=== PATIENT | female | born 1970 | race African-American/Black ===

== ENCOUNTER → 2019-01-22 | Day surgery (SDC) | payer OTHER ==
[~2019-01-22] MED LIST: DULERA 100 MCG/13 GM INH; FENTANYL CITRATE/PF 100MCG/2 ML INJ ONE; HYOSCYAMINE SULFATE 0.5 MG/ML INJ ONE; MIDAZOLAM HCL 2 MG/2 ML VIAL ONE; PROPOFOL IV EMULSION 10 MG/ML 20 ML VIAL ONE; PROPOFOL IV EMULSION 10 MG/ML 50 ML VIAL ONE; ZYRTEC-D TABLE1 EACH PO
--- NOTE | 2019-01-24 03:42 | Operative Report ---
DATE OF PROCEDURE: 01/22/2019 SURGEON: Simba Chanel MD PROCEDURES: EGD with biopsies and a colonoscopy with polypectomy. REFERRING PHYSICIAN: Dr. Sabrina Triana. She is with [facility]. INDICATIONS FOR EGD: Upper abdominal pain, bloating, and nausea. INDICATIONS FOR COLONOSCOPY: Surveillance colonoscopy, personal history of colon polyps, father with colon cancer and maternal grandmother with colon cancer. MEDICATION: The patient was done under MAC. Please see anesthesiologist note. PROCEDURE IN DETAIL: With the patient in the left lateral decubitus position, a flexible fiberoptic Olympus gastroscope was introduced into the esophagus under direct visualization without any difficulty. There were some patchy erythema noted in the distal esophagus. The scope was then advanced with ease into the stomach. Mucosa overlying the antrum of the body revealed some patchy intense erythema and moderate edema and biopsies were obtained and sent stain for H pylori. Some hyperplastic appearing polyps were noted in the body and the fundus of the stomach and some were partially excised with the cold biopsy forceps. Pylorus was of normal contour and shape. It was intubated with ease and the scope was advanced all the way to the second portion of the duodenum. Biopsies were obtained from the proximal second portion to rule out sprue. Mucosa overlying the duodenal bulb appeared to be within normal limits. The scope was then withdrawn back into the stomach and retroflexed. Mucosa overlying the fundus and cardia appeared to be within normal limits. The scope was then straightened out and was subsequently withdrawn. The patient tolerated the procedure well. IMPRESSION: 1. Distal esophagitis. 2. Gastritis, biopsied, biopsies sent to stain for Helicobacter pylori. 3. Gastric polyps, some partially excised with cold biopsy forceps. 4. Rule out sprue. PLAN: Follow up histology. Initiate Protonix 40 mg one p.o. q.a.m. before meals. The patient was then turned around and after adequate lubrication of the anal canal, the flexible fiberoptic Olympus colonoscope was inserted into the rectum with ease and advanced all the way to the cecum. Mucosa overlying the cecum appeared to be within normal limits. The scope was then removed slowly and one polyp was hot biopsied and polypectomy site was hemoclipped in the ascending colon. Two polyps were hot biopsied from the transverse colon. The descending appeared to be within normal limits. One polyp was hot biopsied from the sigmoid and one polyp was hot biopsied from the rectum. The scope was then retroflexed into the distal rectum and small internal hemorrhoids were noted, none of which was actively bleeding. The scope was then straightened out and was subsequently withdrawn. The patient tolerated the procedure well. IMPRESSION: 1. Ascending colon polyp, hot biopsied, polypectomy site hemoclipped. 2. Transverse colon polyps x2, hot biopsied. 3. Sigmoid colon polyp x1, hot biopsied. 4. Rectal polyp x1, hot biopsied. 5. Internal hemorrhoids, none actively bleeding. PLAN: Follow up histology. Initiate high-fiber, low-fat diet. Initiate high-fiber supplement. The patient might benefit from a followup colonoscopy in 2 to 3 years. Simba Chanel MD [facility] /[id number] cc: Dr. Sabrina Triana
--- OUTSIDE RECORDS SUMMARY | 2019-01-24 09:03 | XMS REPORT | Summary of Care ---
Author Author [facility] Organization [facility] Address Unknown Phone Unavailable Encounter DMITRI Flores(RADHA) [id number] Date(s): 12/23/17 - 12/24/17 [facility] [address] [facility], [facility] [address] [place] [address]- Vital Signs No data available for this section Problem List Condition Effective Dates Status Health Status Informant Morbid Active obesity(Confirmed) Allergies, Adverse Reactions, Alerts Substance Reaction Severity Status penicillins Active Medications methocarbamol 750 mg oral tablet See Instructions, # 30 tab, TAKE 1 TABLET BY MOUTH EVERY DAY NEEDED FOR MUSCL E PAIN, Pharmacy: [facility]/pharmacy #[id number] Start Date: 12/23/17 Status: Ordered Results No data available for this section Immunizations Given and Recorded Vaccine Date Status Refusal Reason diphtheria/pertussis, acel/tetanus adult1 11/27/17 Given 1Result Comment: patient monitored for 15 minutes had no side effect Procedures Procedure Date Related Diagnosis Body Site Status Partial hysterectomy 08/2007 Completed Social History Social History Type Response Substance Abuse Use: None. Sexual Sexually active: Yes. Last Pap Smear LAST PAP: 11/26/2017. Exercise Exercise frequency: 1-2 times/week. Exercise type: Walking. Employment/School Status: Employed. Work/School description: Admin.1, 2 Alcohol Past Smoking Status Never smoker; Exposure to Tobacco Smoke None; Cigarette Smoking Last 365 Days No; Reg Smoking Cessation Counseling No entered on: 02/26/18 1same 2Married, 2 boys Assessment and Plan No data available for this section
--- OUTSIDE RECORDS SUMMARY | 2019-01-24 09:03 | XMS REPORT | Clinical Summary ---
Author Author [facility] [employer] [facility] [employer] Address Unknown Phone Unavailable Care Team Providers Care Foreign Language Instructor Name Role Phone Chely James MD PCP Allergies Comments Active Allergy Reactions Severity Noted Date Penicillin 01/19/2018 Medications End Date Status Medication Sig Dispensed Refills Start Date Active phentermine-topiramate Take by mouth 0 (QSYMIA) 7.5-46 mg daily. capsule, ER multiphase 24 hr Active diclofenac (VOLTAREN) 50 Take 50 mg by 0 MG EC tablet mouth 2 (two) times a day. Active methocarbamol (ROBAXIN) Take 750 mg 0 750 MG tablet by mouth 4 (four) times a day. 08/10/2019 Active gabapentin (NEURONTIN) Take 1 90 capsule 11 300 mg capsule capsule (300 8 mg total) by mouth 3 (three) times a day. 09/21/2019 Active meloxicam (MOBIC) 15 mg Take 1 tablet 30 tablet 2 tablet (15 mg total) 8 by mouth daily. 08/16/2018 cyclobenzaprine Take 1 tablet 14 tablet 0 (FLEXERIL) 10 mg tablet (10 mg total) 8 by mouth 2 (two) times a day as needed for muscle spasms for up to 7 days. 08/16/2018 naproxen (NAPROSYN) 500 Take 1 tablet 14 tablet 0 MG tablet (500 mg 8 total) by mouth 2 (two) times a day with meals for 7 days. 10/10/2018 celecoxib (CeleBREX) 100 Take 1 60 capsule 1 MG capsule capsule (100 8 mg total) by mouth 2 (two) times a day for 30 days. 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 (Primary Dx) 10/04/2018 Office Visit Oncology Anita Cardoso MD Screening mammogram, encounter for (Primary Dx) 10/04/2018 Orders Only Oncology Bryan Ma DO Abdominal distention, non-gaseous (Primary Dx) 10/02/2018 Emergency Emergency Medicine Jonathan Ma MD Radicular pain of shoulder (Primary Dx) 09/30/2018 Office Visit Orthopedic Surgery Jonathan Ma MD Radicular pain of shoulder (Primary Dx) 09/21/2018 Office Visit Orthopedic Surgery Anita Cardoso MD 09/16/2018 Telephone Oncology Anita Cardoso MD 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 (Primary Dx) 09/14/2018 Orders Only Oncology Flaca Sebastian Bradycardia 09/09/2018 Orders Only Procedural Cardiology Jonathan Ma MD 09/08/2018 Telephone Orthopedic Surgery Hipolito Ervin MD Nabi, Faisal, MD Screening for cardiovascular condition (Primary Dx); Bradycardia 09/07/2018 Office Visit Cardiology Jonathan Ma MD 09/06/2018 Telephone Orthopedic Surgery Jonathan Ma MD Tendinitis of left rotator cuff (Primary Dx); Left shoulder pain, unspecified chronicity 08/10/2018 Office Visit Orthopedic Surgery Dunia Montalvo MD Supraspinatus tendon tear, left, initial encounter (Primary Dx); Other cervical disc degeneration at C6-C7 level 08/09/2018 Emergency Emergency Medicine Anita Cardoso MD 06/16/2018 Telephone Oncology after 01/23/2018 Family History Medical History Relation Name Comments Cancer Father Galindo Colon cancer- 1994 Wilkes, Sr. Colon cancer Father Galindo Eula, Sr. Diabetes Father Galindo Eula, Sr. Cancer Maternal Capri Alize Colon cancer- 1983 Grandmother Colon cancer Maternal Capri Alize Grandmother Cancer Mother Ara Forde Ovarian cancer- 2008 Ovarian cancer Mother Ara Forde Diabetes Paternal Rasheeda Grandmother [place]-dec eased Colon cancer Paternal Uncle Relation Name Status Comments Father Galindo Forde, Sr. Maternal Grandmother Capri Herrmann Mother Ara Forde Paternal Grandmother Rasheeda [place]-dece ased Paternal Uncle Social History Date Tobacco Use Types Packs/Day Years Used Never Smoker Smokeless Tobacco: Never Used Alcohol Use Drinks/Week oz/Week Comments No Sex Assigned at Date Recorded Not on file Industry Job Start Date Occupation Not on file Not on file Not on file Travel End Travel History Travel Start No recent travel history available. Last Filed Vital Signs Time Taken Vital Sign Reading 10/04/2018 1:14 PM [employer] Blood Pressure 112/74 10/04/2018 1:14 PM [employer] Pulse 84 10/04/2018 1:14 PM [employer] Temperature 37 C (98.6 F) 10/02/2018 2:00 AM CDT Respiratory Rate 18 10/02/2018 2:00 AM CDT Oxygen Saturation 97% - Inhaled Oxygen - Concentration 10/04/2018 1:14 PM [employer] Weight 97.2 kg (214 lb 4 oz) 10/04/2018 1:14 PM [employer] SUPERVIS[employer] Height 167.6 cm (5' 6") 10/04/2018 1:14 PM [employer]PER[employer] Body Mass Index 34.58 Plan of Treatment Care Team Description Date Type Specialty Anita Cardoso MD [address] [place] [id number] 04/06/2019 Office Visit Oncology Health Maintenance Due Date Last Done Comments CERVICAL CANCER SCREENING 1993 INFLUENZA VACCINE 06/30/2018 Procedures Comments Procedure Name Priority Date/Time Associated Diagnosis CHG US, CHEST,REAL TIME Routine 10/02/2018 3:12 AM CDT CHG US, ABDOMEN LIMITED Routine 10/02/2018 3:12 AM CDT ESTIMATED GFR STAT 10/02/2018 3:00 AM CDT CREATINE KINASE, TOTAL STAT 10/02/2018 (CPK) 3:00 AM CDT COMPREHENSIVE METABOLIC STAT 10/02/2018 PANEL 3:00 AM CDT HC COMPLETE BLD COUNT STAT 10/02/2018 W/AUTO DIFF 3:00 AM CDT URINALYSIS SCREEN AND STAT 10/02/2018 MICROSCOPY, WITH REFLEX 3:00 AM CDT TO CULTURE URINE CULTURE STAT 10/02/2018 3:00 AM CDT XR ABDOMEN ACUTE INC STAT 10/02/2018 CHEST 2:26 AM CDT CV STRESS TEST NUCLEAR Routine 09/21/2018 Bradycardia CARDIO 3:24 PM CDT MRI BREAST W WO CONTRAST Routine 09/21/2018 BILATERAL MRI BREAST W WO CONTRAST Routine 09/21/2018 BILATERAL HEMOGLOBIN A1C Routine 09/07/2018 10:45 AM CDT T3 Routine 09/07/2018 Bradycardia 10:45 AM CDT T4, FREE Routine 09/07/2018 Bradycardia 10:45 AM CDT THYROID STIMULATING Routine 09/07/2018 Bradycardia HORMONE 10:45 AM CDT COMPREHENSIVE METABOLIC Routine 09/07/2018 Bradycardia PANEL 10:45 AM CDT CBC WITH PLATELET AND Routine 09/07/2018 Bradycardia DIFFERENTIAL 10:45 AM CDT LIPID PANEL Routine 09/07/2018 Bradycardia 10:45 AM CDT CV HOLTER MONITOR 48 HOUR Routine 09/07/2018 Bradycardia 10:37 AM CDT ECG 12-LEAD Routine 09/07/2018 Screening for 9:30 AM CDT cardiovascular condition XR SHOULDER 2+ VW LEFT Routine 08/10/2018 Left shoulder pain, 2:49 PM CDT unspecified chronicity ME ARTHROCENTESIS Routine 08/10/2018 Tendinitis of left ASPIR&/INJ MAJOR JT/BURSA 2:00 PM CDT rotator cuff W/O US MRI UPPER EXTREMITY WO STAT 08/09/2018 CONTRAST LEFT 7:26 PM CDT MRI CERVICAL SPINE WO STAT 08/09/2018 CONTRAST 6:56 PM CDT ECG 12-LEAD STAT 08/09/2018 5:41 PM CDT ZZESTIMATED GFR STAT 08/09/2018 5:10 PM CDT TROPONIN STAT 08/09/2018 5:10 PM CDT LIPASE LEVEL STAT 08/09/2018 5:10 PM CDT HC COMPLETE BLD COUNT STAT 08/09/2018 W/AUTO DIFF 5:10 PM CDT COMPREHENSIVE METABOLIC STAT 08/09/2018 PANEL 5:10 PM CDT SPLINT APPLICATION Routine 08/09/2018 4:25 PM CDT after 01/23/2018 Results * FAST ULTRASOUND (10/02/2018 3:12 AM CDT) Narrative Performed At Bryan Ma DO 10/02/20185:29 AM FAST Ultrasound Performed by: BRYAN MA Authorized by: BRYAN MA Procedure details: Indications comment:Abdominal swelling Assess for:Intra-abdominal fluid Technique:Abdominal and cardiac Abdominal findings: L kidney:Visualized R kidney:Visualized Liver:Visualized Bladder:Visualized Hepatorenal space visualized: identified Splenorenal space: identified Rectovesical free fluid: not identified Splenorenal free fluid: not identified Pouch of Shaun free fluid: not identified Cardiac findings: Heart:Visualized Wall motion: identified Pericardial effusion: not identified * Urinalysis screen and microscopy, with reflex to culture (10/02/2018 3:00 AM CDT) Specimen site Clean catch [facility] DEPARTMENT OF PATHOLOGY AND GENOMIC MEDICINE Color, UA Straw [facility] DEPARTMENT OF PATHOLOGY AND GENOMIC MEDICINE Appearance, UA Clear [facility] DEPARTMENT OF PATHOLOGY AND GENOMIC MEDICINE Specific gravity, UA 1.011 1.001 - 1.035 [facility] DEPARTMENT OF PATHOLOGY AND GENOMIC MEDICINE pH, UA 6.0 5.0 - 8.5 [facility] DEPARTMENT OF PATHOLOGY AND GENOMIC MEDICINE Protein, UA Negative Negative [facility] DEPARTMENT OF PATHOLOGY AND GENOMIC MEDICINE Glucose, UA Negative Negative [facility] DEPARTMENT OF PATHOLOGY AND GENOMIC MEDICINE Ketones, UA Negative Negative [facility] DEPARTMENT OF PATHOLOGY AND GENOMIC MEDICINE Bilirubin, UA Negative Negative [facility] DEPARTMENT OF PATHOLOGY AND GENOMIC MEDICINE Blood, UA Negative Negative [facility] DEPARTMENT OF PATHOLOGY AND GENOMIC MEDICINE Nitrite, UA Negative Negative [facility] DEPARTMENT OF PATHOLOGY AND GENOMIC MEDICINE Urobilinogen, UA <2.0 <2.0 [facility] DEPARTMENT OF PATHOLOGY AND GENOMIC MEDICINE Leukocyte esterase, UA Negative Negative [facility] DEPARTMENT OF PATHOLOGY AND GENOMIC MEDICINE Epithelial cells, UA 1 /HPF [facility] DEPARTMENT OF PATHOLOGY AND GENOMIC MEDICINE WBC, UA <1 0 - 4 /HPF [facility] DEPARTMENT OF PATHOLOGY AND GENOMIC MEDICINE RBC, UA None seen 0 - 5 /HPF [facility] DEPARTMENT OF PATHOLOGY AND GENOMIC MEDICINE Bacteria, UA Few None seen [facility] DEPARTMENT OF PATHOLOGY AND GENOMIC MEDICINE Yeast, UA Few (A) [facility] DEPARTMENT OF PATHOLOGY AND GENOMIC MEDICINE Yeast with pseudohyphae, None seen [facility] DEPARTMENT OF PATHOLOGY AND GENOMIC MEDICINE Specimen Urine Performing Organization Address City/State/[facility] [place] [address] PATHOLOGY AND GENOMIC MEDICINE * Estimated GFR (10/02/2018 3:00 AM CDT) Estimated GFR >=90 mL/min/1.73 m2 [facility] DEPARTMENT OF Comment: PATHOLOGY AND CatergoryUnitsInte GENOMIC MEDICINE rpretation G1 >=90 Normal or high G2 60-89Mildly decreased [id number] Mildly to moderately decreased [id number] Moderately to severely decreased G4 15-29Severely decreased G5 <15Kidney failure The eGFR was calculated using the Chronic Kidney Disease Epidemiology Collaboration (CKD-EPI) equation. Interpretation is based on recommendations of the National Kidney Foundation-Kidney Disease Outcomes Quality Initiative (NKF-KDOQI) published in 2014. Specimen Plasma specimen Performing Organization Address City/State/Zipcode Phone Number [facility] DEPARTMENT OF [address] [phone] PATHOLOGY AND GENOMIC MEDICINE * CBC with platelet and differential (10/02/2018 3:00 AM CDT) Only the most recent of 3 results within the time period is included. WBC 7.78 4.50 - 11.00 k/uL [facility] DEPARTMENT OF PATHOLOGY AND GENOMIC MEDICINE RBC 4.53 4.20 - 5.50 m/uL [facility] DEPARTMENT OF PATHOLOGY AND GENOMIC MEDICINE HGB 13.3 12.0 - 16.0 g/dL [facility] DEPARTMENT OF PATHOLOGY AND GENOMIC MEDICINE HCT 40.3 37.0 - 47.0 % [facility] DEPARTMENT OF PATHOLOGY AND GENOMIC MEDICINE MCV 89.0 82.0 - 100.0 fL [facility] DEPARTMENT OF PATHOLOGY AND GENOMIC MEDICINE MCH 29.4 27.0 - 34.0 pg [facility] DEPARTMENT OF PATHOLOGY AND GENOMIC MEDICINE MCHC 33.0 31.0 - 37.0 g/dL [facility] DEPARTMENT OF PATHOLOGY AND GENOMIC MEDICINE RDW - SD 43.9 37.0 - 55.0 fL [facility] DEPARTMENT OF PATHOLOGY AND GENOMIC MEDICINE MPV 10.3 8.8 - 13.2 fL [facility] DEPARTMENT OF PATHOLOGY AND GENOMIC MEDICINE Platelet count 274 150 - 400 k/uL [facility] DEPARTMENT OF PATHOLOGY AND GENOMIC MEDICINE Nucleated RBC 0.00 /100 WBC [facility] DEPARTMENT OF PATHOLOGY AND GENOMIC MEDICINE Neutrophils 52.2 39.0 - 69.0 % [facility] DEPARTMENT OF PATHOLOGY AND GENOMIC MEDICINE Lymphocytes 36.4 25.0 - 45.0 % [facility] DEPARTMENT OF PATHOLOGY AND GENOMIC MEDICINE Monocytes 7.8 0.0 - 10.0 % [facility] DEPARTMENT OF PATHOLOGY AND GENOMIC MEDICINE Eosinophils 2.7 0.0 - 5.0 % [facility] DEPARTMENT OF PATHOLOGY AND GENOMIC MEDICINE Basophils 0.5 0.0 - 1.0 % [facility] DEPARTMENT OF PATHOLOGY AND GENOMIC MEDICINE Immature granulocytes 0.4Comment: "Immature 0.0 - 1.0 % [facility] DEPARTMENT OF granulocytes" (promyelocytes, PATHOLOGY AND myelocytes, metamyelocytes) GENOMIC MEDICINE Specimen Blood Performing Organization Address City/[facility]/[place] [address] PATHOLOGY AND GENOMIC MEDICINE * Urine culture (10/02/2018 3:00 AM CDT) Urine culture SEE COMMENTComment: [facility] DEPARTMENT OF Bacteriuria screen negative. PATHOLOGY AND GENOMIC MEDICINE Performing Organization Address City/[facility]/[place] [address] PATHOLOGY AND GENOMIC MEDICINE * Creatine kinase, total (CPK) (10/02/2018 3:00 AM CDT) Creatine kinase 104 26 - 192 U/L [facility] DEPARTMENT OF PATHOLOGY AND GENOMIC MEDICINE Specimen Plasma specimen Performing Organization Address [facility] [place] [address] PATHOLOGY AND GENOMIC MEDICINE * Comprehensive metabolic panel (10/02/2018 3:00 AM CDT) Only the most recent of 3 results within the time period is included. Sodium 138 135 - 148 mEq/L [facility] DEPARTMENT OF PATHOLOGY AND GENOMIC MEDICINE Potassium 4.1 3.5 - 5.0 mEq/L [facility] DEPARTMENT OF PATHOLOGY AND GENOMIC MEDICINE Chloride 103 98 - 112 mEq/L [facility] DEPARTMENT OF PATHOLOGY AND GENOMIC MEDICINE CO2 22 (L) 24 - 31 mEq/L [facility] DEPARTMENT OF PATHOLOGY AND GENOMIC MEDICINE Anion gap 13@ANIO 7 - 15 mEq/L [facility] DEPARTMENT OF PATHOLOGY AND GENOMIC MEDICINE BUN 8 6 - 20 mg/dL [facility] DEPARTMENT OF PATHOLOGY AND GENOMIC MEDICINE Creatinine 0.88 0.50 - 0.90 mg/dL [facility] DEPARTMENT OF PATHOLOGY AND GENOMIC MEDICINE Glucose 109 (H) 65 - 99 mg/dL [facility] DEPARTMENT OF PATHOLOGY AND GENOMIC MEDICINE Calcium 9.3 8.3 - 10.2 mg/dL [facility] DEPARTMENT OF PATHOLOGY AND GENOMIC MEDICINE Protein 7.3 6.3 - 8.3 g/dL [facility] DEPARTMENT OF Comment: PATHOLOGY AND GENOMIC MEDICINE 4.6-7.0 g/dL 1 week 4.4-7.6 g/dL 7 months-1year 5.1-7.3 g/dL 1-2 years5.6-7 .5 g/dL >3 years6.0-8 .0 g/dL 18-150 6.3-8.3 g/dL Albumin 3.5 3.5 - 5.0 g/dL [facility] DEPARTMENT OF PATHOLOGY AND GENOMIC MEDICINE A/G ratio 0.9 0.7 - 3.8 [facility] DEPARTMENT OF PATHOLOGY AND GENOMIC MEDICINE Alkaline phosphatase 105 (H) 35 - 104 U/L [facility] DEPARTMENT OF PATHOLOGY AND GENOMIC MEDICINE AST 24 10 - 35 U/L [facility] DEPARTMENT OF PATHOLOGY AND GENOMIC MEDICINE ALT 24 5 - 50 U/L [facility] DEPARTMENT OF PATHOLOGY AND GENOMIC MEDICINE Total bilirubin <0.2 0.0 - 1.2 mg/dL [facility] DEPARTMENT OF PATHOLOGY AND GENOMIC MEDICINE Specimen Plasma specimen Performing Organization Address City/State/Zipcode Phone Number [facility] DEPARTMENT OF [address] [place] [address] PATHOLOGY AND GENOMIC MEDICINE * XR Abdomen Acute Inc Chest (10/02/2018 2:26 AM CDT) Narrative Performed At EXAMINATION:XR ABDOMEN ACUTE INC CHEST [facility] CLINICAL HISTORY:abdominal distention COMPARISON:None IMPRESSION: No consolidations, effusions, or pneumothorax. Cardiomediastinal silhouette is within normal limits. Mild to moderate quantity of fecal material is seen of the right colon. No gastrointestinal tract obstruction. No pathologic calcification over the kidneys or expected course of the ureters. No acute osseous abnormalities. [facility]-[id number] Procedure Note Hm Interface, Radiology Results Incoming - 10/02/2018 3:14 AM CDT EXAMINATION: XR ABDOMEN ACUTE INC CHEST CLINICAL HISTORY: abdominal distention COMPARISON: None IMPRESSION: No consolidations, effusions, or pneumothorax. Cardiomediastinal silhouette is within normal limits. Mild to moderate quantity of fecal material is seen of the right colon. No gastrointestinal tract obstruction. No pathologic calcification over the kidneys or expected course of the ureters. No acute osseous abnormalities. [facility]-[id number] Performing Organization Address [facility] Phone Number [facility] [address] [place] [address] * Cv stress test (09/21/2018 3:24 PM CDT) Resting HR 66 [facility] Resting BP 124 [facility] M[facility] Peak MET Achieved 10.0 [facility] MUSE Protocol Name WILDER [facility] MUSE Time in Exercise Phase 00:06:59 [facility] Max Systolic BP 156 [facility] Max Diastolic BP 72 [facility] Max Heart Rate 176 [facility] Max Predicted Heart Rate 174 [facility] Target HR Formula (220 - Age)*85% [facility] Test Indication BRADYCARDIA [facility] Arrhy During Ex [facility] ECG Interp Before EX [facility] ECG Interp During Ex [facility] Ex Summary Comment [facility] Overall HR Response to [facility] Exercise Overall BP Response To [facility] Exercise Reason for Termination Target heart rate [facility] achieved,Tired Stress Test Impression -1st degree AV block. [facility] -Otherwise normal baseline EKG-Normal HR response to exercise-Normal BP response to exercise-Reasonable heart rate recovery. -No arrhythmias during exercise nor during rest. -Acceptable exercise capacity. --ST depressions noted in the inferior and septal leads at peak exercise, resolved with rest. --Impressions-Abnormal test suggestive of ischemia- Performing Organization Address [facility] Phone Number [employer] [address] [place] [address] * MRI Breast W Wo Contrast Bilateral (09/21/2018) Only the most recent of 2 results within the time period is included. Narrative Performed At * T3 (09/07/2018 10:45 AM CDT) T3 101 76 - 181 ng/dL [facility] Specimen Blood Narrative Performed At FASTING:NO QUEST FASTING: NO Resulting Agency Comment Performing Organization Information: Site ID: [id number]: [facility] Address: [address] [place] [phone] Director: Ivette Booker Performing Organization Address [facility] Phone Number [place] [address] * Thyroid stimulating hormone (09/07/2018 10:45 AM CDT) TSH 1.04 mIU/L [facility] Comment: [facility]PECT Reference Range > or=20 Years0.40-4.50 Ranges First trimester0.26-2.66 Second trimester 0.55-2.73 Third trimester0.43-2.91 Specimen Blood Narrative Performed At FASTING:NO QUEST FASTING: NO Resulting Agency Comment Performing Organization Information: Site ID: [id number] Name: [facility] Address: [address] [place] [phone] Director: Ivette Booker Performing Organization Address [facility] [place] [address] * T4, free (09/07/2018 10:45 AM CDT) T4, free 1.0 0.8 - 1.8 ng/dL [facility] Specimen Blood Narrative Performed At FASTING:NO QUEST FASTING: NO Resulting Agency Comment Performing Organization Information: Site ID: [id number] [facility] Address: [address] [place] [phone] Director: Ivette Booker Performing Organization Address [facility] Phone Number [place] [address] * Hemoglobin A1c (09/07/2018 10:45 AM CDT) Hemoglobin A1C 5.2 <5.7 % of total Hgb [facility] Comment: PROSPECT For the purpose of screening for the presence of diabetes: <5.7% Consistent with the absence of diabetes 5.7-6.4%Consistent with increased risk for diabetes (predi abetes) > or=6.5%Consistent with diabetes This assay result is consistent with a decreased risk of diabetes. Currently, no consensus exists regarding use of hemoglobin A1c for diagnosis of diabetes in children. According to [place] [employer] Association (ADA) guidelines, hemoglobin A1c <7.0% represents optimal control in non- diabetic patients. Different metrics may apply to specific patient populations. Standards of Medical Care in Diabetes(ADA). Narrative Performed At FASTING:NO QUEST FASTING: NO Resulting Agency Comment Performing Organization Information: Site ID: [id number] [facility]: [facility] Address: [address] [place] [phone] Director: Ivette Booker Performing Organization Address City/State/Zipcode Phone Number [facility] [place] [phone] * Lipid panel (09/07/2018 10:45 AM CDT) Cholesterol, total 185 <200 mg/dL [facility] HDL cholesterol 48 (L) >50 mg/dL [facility] Triglycerides 116 <150 mg/dL [facility] LDL cholesterol 115 (H) mg/dL (calc) [facility] calculated Comment: PROSPECT Reference range: <100 Desirable range <100 mg/dL for primary prevention; <70 mg/dL for patients with CHD or diabetic patients with > or=2 CHD risk factors. LDL-C is now calculated using the Librado calculation, which is a validated novel method providing better accuracy than the Friedewald equation in the estimation of LDL-C. Maxi GONZALEZ et al. ELLIS. 2013;310(19): 6104-7166 (http://education.Mobclix.com/faq/PPL007) Cholesterol/HDL ratio 3.9 <5.0 (calc) [facility] Non-HDL cholesterol 137 (H) <130 mg/dL (calc) [facility] Comment: PROSPECT For patients with diabetes plus 1 major ASCVD risk factor, treating to a non-HDL-C goal of <100 mg/dL (LDL-C of <70 mg/dL) is considered a therapeutic option. Specimen Blood Narrative Performed At FASTING:NO QUEST FASTING: NO Resulting Agency Comment Performing Organization Information: Site ID: [id number] [facility]: [facility] Address: [address] [place] [address] Director: Ivette Booker Performing Organization Address [facility] Phone Number JACKELINE [facility] [address] [place], [place] [phone] * CV Holter monitor 48 hour (09/07/2018 10:37 AM CDT) Hookup Date [id number] [facility] Hookup Time 136149 [facility] Acquisition Duration [id number] [facility] # of Ventricular Beats in 0 [facility] Runs # OF LONGEST VENTRICULAR [facility] BEATS # of Supraventricular 0 [facility] Beats in Runs # of Longest [facility] Supraventricular Beats Max Heart Rate 149 [facility] Min Heart Rate 52 [facility] Longest RR 1.296 [facility] Diagnosis Predominantly sinus rhythm [facility] with mean HR 92 bpm-HR range 52 to 149 bpm (31% of time in tachycardia)-Rare PAC's-Rare PVC's-Longest RR 1.29 seconds, no AV block-No ischemic ST changes-No correlation with symptoms- Narrative Performed At Performing Organization Address [facility] Phone Number [employer] [facility] [address] [place] [address] * ECG 12 lead (09/07/2018 9:30 AM CDT) Only the most recent of 2 results within the time period is included. Ventricular rate 82 [facility] Atrial rate 82 [facility] ME interval 168 [facility] QRSD interval 82 [facility] QT interval 366 [facility] QTC interval 427 [facility] P axis 1 68 [facility] QRS axis 1 34 [facility] T wave axis 58 [facility] EKG impression Normal sinus rhythm-Normal [facility] ECG-In automated comparison with ECG of 09-AUG-2018 17:41,-No significant change was found- Performing Organization Address [facility] Phone Number [facility] [address] [place] [address] * XR Shoulder 2+ Vw Left (08/10/2018 2:49 PM CDT) Narrative Performed At [facility] [facility] Four views (true AP, axillary, outlet, and Zanca views) of the left shoulder are obtained and reviewed today.The glenohumeral and AC joints appear normal.There is no evidence of dislocation, fracture, or significant degenerative change. No abnormal soft tissue calcifications are seen. Performing Organization Address City/State/Zipcode Phone Number [facility] [address] [place] [address] * Large Joint Arthrocentesis (08/10/2018 2:00 PM CDT) Narrative Performed At Jonathan Ma MD 08/11/2018 10:21 PM Large Joint Arthrocentesis Consent given by: patient Site marked: site marked Timeout: Immediately prior to procedure a time out was called to verify the correct patient, procedure, equipment, computer support analyst and site/side marked as required Supporting Documentation Indications: pain Procedure Details Preparation: Patient was prepped and draped in the usual sterile fashion Ultrasound guided: no Platelet Rich Plasma Used: no PRP Used Location: shoulder - L subacromial bursa Left side: Needle size: 22 G Approach: posterior Left shoulder medications administered: 80 mg methylPREDNISolone acetate 40 mg/mL; 3 mL lidocaine 10 mg/mL (1 %) Patient tolerance: patient tolerated the procedure well with no immediate complications * MRI Upper Extremity Wo Contrast Left (08/09/2018 7:26 PM CDT) Narrative Performed At EXAMINATION:MRI UPPER EXTREMITY WO CONTRAST LEFT [facility] CLINICAL HISTORY: Shoulder paininitial exam COMPARISON:None. Technique: Multiplanar imaging of the left shoulder was performed without intravenous or intra-articular contrast. FINDINGS: 1.Rotator cuff: Limited intrasubstance insertional tear of the anterior supraspinatus not without significant retraction or atrophy. There are involves less than 50% thickness the tendon. 2.Glenoid labrum: No tear or displacement. 3.Biceps tendon: Intact. No dislocation. 4.Joint space: No significant joint effusion. 5.Soft tissue: Small amount of fluid in the subacromial and subdeltoid bursa consistent with bursitis. 6.Bone marrow: No fracture, avascular necrosis, or significant bone marrow edema. IMPRESSION: Partial tear of anterior supraspinatus without retraction or atrophy. [id number] Procedure Note Interface, Radiology Results Incoming - 08/09/2018 7:32 PM CDT EXAMINATION: MRI UPPER EXTREMITY WO CONTRAST LEFT CLINICAL HISTORY: Shoulder pain initial exam COMPARISON: None. Technique: Multiplanar imaging of the left shoulder was performed without intravenous or intra-articular contrast. FINDINGS: 1. Rotator cuff: Limited intrasubstance insertional tear of the anterior supraspinatus not without significant retraction or atrophy. There are involves less than 50% thickness the tendon. 2. Glenoid labrum: No tear or displacement. 3. Biceps tendon: Intact. No dislocation. 4. Joint space: No significant joint effusion. 5. Soft tissue: Small amount of fluid in the subacromial and subdeltoid bursa consistent with bursitis. 6. Bone marrow: No fracture, avascular necrosis, or significant bone marrow edema. IMPRESSION: Partial tear of anterior supraspinatus without retraction or atrophy. [id number] Performing Organization Address City/State/Zipcode Phone Number [facility] [address] [place] [address] * MRI Cervical Spine Wo Contrast (08/09/2018 6:56 PM CDT) Narrative Performed At [facility] EXAMINATION: MRI CERVICAL SPINE WO CONTRAST CLINICAL HISTORY: C-spine stenosis COMPARISON:None TECHNIQUE: Multiplanar multisequence noncontrast enhanced examination was performed of the cervical spine. FINDINGS: Mild straightening of the normal cervical lordosis, likely positional. No evidence of subluxation. Vertebral body heights are maintained without evidence of fracture. No degenerative endplate edema. Mild multilevel intervertebral disc space narrowing. Cord signal appears normal. 1.1 cm cystic nodule within the right thyroid lobe. Mild nonspecific prominence of the submandibular glands without distinct lesion. Axial images through the disc spaces demonstrate the following: C1-C2: No significant spinal canal stenosis. C2-C3: No significant posterior disc disease, spinal canal or neural foraminal stenosis. C3-C4: No significant posterior disc disease, spinal canal or neural foraminal stenosis. C4-C5: No significant posterior disc disease, spinal canal or neural foraminal stenosis. C5-C6: No significant posterior disc disease, spinal canal or neural foraminal stenosis. C6-C7: Minimal right central posterior disc protrusion measuring 1 mm in AP dimension. No significant spinal canal or neural foraminal stenosis. C7-T1: No significant posterior disc disease, spinal canal or neural foraminal stenosis. No significant posterior disc disease, spinal canal or neural foraminal stenosis at other visualized levels. IMPRESSION: 1. Minimal degenerative disc disease at C6-C7 without evidence of spinal canal or neural foraminal stenosis. 2. Cystic-appearing right thyroid nodule measuring 1.1 cm. Given its size, further evaluation with ultrasound could be performed on a nonemergent basis if this has not been investigated previously. [id number] Procedure Note Interface, Radiology Results Incoming - 08/09/2018 7:31 PM CDT EXAMINATION: MRI CERVICAL SPINE WO CONTRAST CLINICAL HISTORY: C-spine stenosis COMPARISON: None TECHNIQUE: Multiplanar multisequence noncontrast enhanced examination was performed of the cervical spine. FINDINGS: Mild straightening of the normal cervical lordosis, likely positional. No evidence of subluxation. Vertebral body heights are maintained without evidence of fracture. No degenerative endplate edema. Mild multilevel intervertebral disc space narrowing. Cord signal appears normal. 1.1 cm cystic nodule within the right thyroid lobe. Mild nonspecific prominence of the submandibular glands without distinct lesion. Axial images through the disc spaces demonstrate the following: C1-C2: No significant spinal canal stenosis. C2-C3: No significant posterior disc disease, spinal canal or neural foraminal stenosis. C3-C4: No significant posterior disc disease, spinal canal or neural foraminal stenosis. C4-C5: No significant posterior disc disease, spinal canal or neural foraminal stenosis. C5-C6: No significant posterior disc disease, spinal canal or neural foraminal stenosis. C6-C7: Minimal right central posterior disc protrusion measuring 1 mm in AP dimension. No significant spinal canal or neural foraminal stenosis. C7-T1: No significant posterior disc disease, spinal canal or neural foraminal stenosis. No significant posterior disc disease, spinal canal or neural foraminal stenosis at other visualized levels. IMPRESSION: 1. Minimal degenerative disc disease at C6-C7 without evidence of spinal canal or neural foraminal stenosis. 2. Cystic-appearing right thyroid nodule measuring 1.1 cm. Given its size, further evaluation with ultrasound could be performed on a nonemergent basis if this has not been investigated previously. [id number] Performing Organization Address City/[facility]/[place] [address] * Estimated GFR (08/09/2018 5:10 PM CDT) GFR Non Af Amer 67 mL/min/1.73 m2 [facility] DEPARTMENT OF PATHOLOGY AND GENOMIC MEDICINE GFR Af Amer 82 mL/min/1.73 m2 [facility] DEPARTMENT OF Comment: PATHOLOGY AND Chronic kidney disease: <60 GENOMIC MEDICINE mL/min/1.73m2 Kidney failure: <15 mL/min/1.73m2 The estimated GFR is calculated from the IDMS-traceable Modification of Diet in Renal Disease Equation. The accuracy of the calculation is poor when the creatinine is normal. Calculated values >90 mL/min/1.73m2 are not reported. This equation has not been validated in children (<18 years), women, the elderly (>70 years), or ethnic groups other than Caucasians and Americans. Specimen Plasma specimen Performing Organization Address [facility] [address] PATHOLOGY AND GENOMIC MEDICINE * Troponin (08/09/2018 5:10 PM CDT) Troponin <0.30 0.00 - 0.30 ng/mL [facility] DEPARTMENT OF Comment: PATHOLOGY AND 0.30 - 1.49 GENOMIC MEDICINE ng/mlMay indicate increased risk of acute coronary syndrome. >=1.5 ng/ml Consistent with acute myocardial infarction. The diagnostic value of a single normal or non-diagnostic result is questionable.Serial samples at 2-6 hour intervals are required to rule out acute myocardial injury. Specimen Plasma specimen Performing Organization Address [facility] [place] [address] PATHOLOGY AND GENOMIC MEDICINE * Lipase level (08/09/2018 5:10 PM CDT) Lipase 19 13 - 60 U/L [facility] DEPARTMENT OF PATHOLOGY AND GENOMIC MEDICINE Specimen Plasma specimen Performing Organization Address [facility] [place] [address] PATHOLOGY AND GENOMIC MEDICINE * SPLINT APPLICATION (08/09/2018 4:25 PM CDT) Narrative Performed At Dunia Montalvo MD 08/09/2018 10:23 PM Splint Application Performed by: KIYA ORTEGA Authorized by: DUNIA MONTALVO Consent: Consent obtained:Verbal Consent given by:Patient Risks discussed:Discoloration, numbness, pain and swelling Alternatives discussed:No treatment, delayed treatment, alternative treatment, observation and referral Pre-procedure details: Sensation:Normal Procedure details: Laterality:Left Location:Arm Arm:L upper arm Supplies:Sling Post-procedure details: Pain:Improved Sensation:Normal Patient tolerance of procedure:Tolerated well, no immediate complications after 01/23/2018 Insurance Payer Benefit Subscriber ID Type Phone Address Plan / Group AETNA AETNA xxxxxxxxxx HMO HMO,POS,EP O, MC/EC Advance Directives Patient has advance care planning documents on file. For more information, sushil garrett contact: Miki Seay [address] [place] [address]
--- OUTSIDE RECORDS SUMMARY | 2019-01-24 09:03 | XMS REPORT | Summary of Care ---
Author Author [facility] Internal Medicine [facility] Organization [facility] Internal Medicine [facility] Address Unknown Phone Unavailable Encounter DMITRI Flores(RADHA) [id number] Date(s): 06/24/18 - 06/24/18 [facility] Internal Medicine [facility] [address] [facility] [address] [place] [address]- [phone] Attending Physician: Faith Feliz MD Vital Signs No data available for this section Problem List Condition Effective Dates Status Health Status Informant Bloating(Confirmed) Active Fluid Active retention(Confirmed) Degenerative Active arthritis of cervical spine(Confirmed) Environmental Active allergies(Confirmed) Left upper quadrant Active pain(Confirmed) Morbid Active obesity(Confirmed) Obesity(Confirmed) Active Abnormal genetic Active test(Confirmed) Rotator cuff tear, Active left(Confirmed) Tachycardia(Confirme Active d) Thyroid Active nodule(Confirmed) Allergies, Adverse Reactions, Alerts Substance Reaction Severity Status penicillins Active Medications No data available for this section Results No data available for this section Immunizations Given and Recorded Vaccine Date Status Refusal Reason diphtheria/pertussis, acel/tetanus adult1 11/27/17 Given 1Result Comment: patient monitored for 15 minutes had no side effect Procedures Procedure Date Related Diagnosis Body Site Status Procedure1 10/2018 Completed MRI guided biopsy of bilateral breasts 09/30/18 Completed Partial hysterectomy 08/2007 Completed 1steroid shots Social History Social History Type Response Substance Abuse Use: None. Sexual Sexually active: Yes. Last Pap Smear LAST PAP: 11/26/2017. Exercise Exercise frequency: 1-2 times/week. Exercise type: Walking. Employment/School Status: Employed. Work/School description: Admin.1, 2 Alcohol Past Smoking Status Never smoker; Exposure to Tobacco Smoke None; Cigarette Smoking Last 365 Days No; Reg Smoking Cessation Counseling No entered on: 11/18/18 1same 2Married, 2 boys Assessment and Plan No data available for this section
--- OUTSIDE RECORDS SUMMARY | 2019-01-24 09:03 | XMS REPORT | Summary of Care ---
Author Author [facility] Internal Medicine [facility] Organization [facility] Internal Medicine [facility] Address Unknown Phone Unavailable Encounter DMITRI Flores(RADHA) [id number] Date(s): 02/26/18 - 02/26/18 [facility] Internal Medicine [facility] [address] [facility] [address] [place] [address]- Discharge Disposition: Home or Self Care Attending Physician: Faith Feliz MD Vital Signs Most recent to 1 oldest [Reference Range]: Height 167.64 cm (02/26/18 9:13 AM) Temperature Oral 98.4 DegF [96.4-99.1 DegF] (02/26/18 9:13 AM) Blood Pressure 122/82 mmHg [90-140/60-90 mmHg] (02/26/18 9:13 AM) Peripheral Pulse 80 bpm Rate [60-100 bpm] (02/26/18 9:13 AM) Weight 97.727 kg (02/26/18 9:13 AM) Body Mass Index 34.77 m2 (02/26/18 9:13 AM) Problem List Condition Effective Dates Status Health Status Informant Morbid Active obesity(Confirmed) Allergies, Adverse Reactions, Alerts Substance Reaction Severity Status penicillins Active Medications Qsymia 11.25 mg-69 mg oral capsule, extended release 1 cap, PO, QAM, # 30 cap, 2 Refill(s) Start Date: 02/26/18 Status: Ordered Results No data available for [...]
--- OUTSIDE RECORDS SUMMARY | 2019-01-24 09:03 | XMS REPORT | Summary of Care ---
Author Author [facility] Internal Medicine [facility] Organization [facility] Internal Medicine [facility] Address Unknown Phone Unavailable Encounter DMITRI Flores(RADHA) [id number] Date(s): 11/27/17 - 11/27/17 [facility] Internal Medicine [facility] [address] [facility] [address] [place], [place] [phone]- [phone] Discharge Disposition: Home or Self Care Attending Physician: Faith Feliz MD Vital Signs Most recent to 1 oldest [Reference Range]: Height 167.64 cm (11/27/17 11:31 AM) Temperature Oral 98.8 DegF [96.4-99.1 DegF] (11/27/17 11:31 AM) Blood Pressure 128/81 mmHg [90-140/60-90 mmHg] (11/27/17 11:31 AM) Peripheral Pulse 67 bpm Rate [60-100 bpm] (11/27/17 11:31 AM) Weight 105.909 kg (11/27/17 11:31 AM) Body Mass Index 37.69 m2 (11/27/17 11:31 AM) Problem List Condition Effective Dates Status Health Status Informant Morbid Active obesity(Confirmed) Allergies, Adverse Reactions, Alerts Substance Reaction Severity Status penicillins Active Medications diclofenac topical 1% gel See Instructions, PRN Apply to affected area, 1 appl TOP BID as needed over shou lder area for pain, # 100 gm, 1 Refill(s), Pharmacy: [facility]/pharmacy #[id number] Start Date: 11/27/17 Status: Ordered Qsymia 3.75 mg-23 mg oral capsule, extended release 1 cap, PO, QAM, # 14 cap, 0 Refill(s) Start Date: 11/27/17 Stop Date: 12/11/17 Status: Ordered Qsymia 7.5 mg-46 mg oral capsule, extended release 1 cap, PO, QAM, # 30 cap, 2 Refill(s) Start Date: 11/27/17 Status: Ordered Robaxin-750 oral tablet See Instructions, 1 tablet daily as needed for muscle pain, # 30 tab, 0 Refill(s ), Pharmacy: [facility]/pharmacy #[id number] Start Date: 11/27/17 Stop Date: 11/28/18 Status: Ordered Results No data available for this section Immunizations Given and Recorded Vaccine Date Status Refusal Reason diphtheria/pertussis, acel/tetanus adult1 11/27/17 Given 1Result Comment: patient monitored for 15 minutes had no side effect Procedures Procedure Date Related Diagnosis Body Site Partial hysterectomy 08/2007 Social History Social History Type Response Substance Abuse Use: None. Sexual Sexually active: Yes. Last Pap Smear LAST PAP: 11/26/2017. Exercise Exercise frequency: 1-2 times/week. Exercise type: Walking. 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
--- OUTSIDE RECORDS SUMMARY | 2019-01-24 09:03 | XMS REPORT | Summary of Care ---
Author Author [facility] Internal Medicine [facility] Organization [facility] Internal [facility] Address Unknown Phone Unavailable Encounter DMITRI Flores(RADHA) [id number] Date(s): 12/10/17 - 12/10/17 [facility] Internal Medicine [facility] [address] [facility] [address] [place] [address]- Discharge Disposition: Home or Self Care Attending Physician: Shea Liao DNP, RN, HAND HE[employer]-BC Vital Signs Most recent to 1 oldest [Reference Range]: Height 167.64 cm (12/10/17 4:08 PM) Temperature Oral 98.4 DegF [96.4-99.1 DegF] (12/10/17 4:08 PM) Blood Pressure 124/81 mmHg [90-140/60-90 mmHg] (12/10/17 4:08 PM) Peripheral Pulse 73 bpm Rate [60-100 bpm] (12/10/17 4:08 PM) Weight 98.182 kg (12/10/17 4:08 PM) Body Mass Index 34.94 m2 (12/10/17 4:08 PM) Problem List Condition Effective Dates Status Health Status Informant Morbid Active obesity(Confirmed) Allergies, Adverse Reactions, Alerts Substance Reaction Severity Status penicillins Active Medications Macrobid 100 mg oral capsule 100 mg=1 cap, PO, BID, 0 Refill(s) Start Date: 12/10/17 Status: Ordered MiraLax oral powder for reconstitution 17 gm, PO, Bedtime, Dissolve in 8 oz. of water, X 7 day, # 1 ea, 1 Refill(s), Ph armacy: [facility]acy #[id number] Start Date: 12/10/17 Stop Date: 12/24/17 Status: Completed Zofran ODT 8 mg oral tablet, disintegrating 8 mg=1 tab, PO, TID, PRN Nausea and Vomiting, Dissolve tab under tongue, # 10 ta b, 0 Refill(s), Pharmacy: [facility]/pharmacy #[id number] Start Date: 12/10/17 Stop Date: 12/14/17 Status: Ordered Results No data available for [...]
--- OUTSIDE RECORDS SUMMARY | 2019-01-24 09:03 | XMS REPORT | Summary of Care ---
Author Author [facility] Outpatient Imaging [facility] Address Unknown Phone Unavailable Encounter [facility] Niocle_nayana(FIN) [id number] Date(s): 12/14/17 - 12/14/17 [facility] Outpatient [facility] [address] [place], [place] [address]- Encounter Diagnosis Unspecified lump in the right breast, unspecified quadrant (Final) - 12/17/17 Discharge Disposition: Home or Self Care Attending Physician: Marian Humphries MD Vital Signs No data available for [...]
--- OUTSIDE RECORDS SUMMARY | 2019-01-24 09:03 | XMS REPORT | Summary of Care ---
Author Author [facility] Internal Medicine [facility] Organization [facility] Internal Medicine [facility] Address Unknown Phone Unavailable Encounter HQ Sandra(FIN) [id number] Date(s): 06/04/18 - 06/04/18 [facility] Internal Medicine [facility] [address] [facility] [address] [place] [address]- Attending Physician: Faith Feliz MD Vital Signs [...]
--- OUTSIDE RECORDS SUMMARY | 2019-01-24 09:03 | XMS REPORT | Continuity of Care Document ---
Author Author [facility] Interface Address Unknown Phone Unavailable Problems Problem Status Onset Date Classification Date Reported Comments Source R10.12 - LEFT UPPER QUADRANT PAIN R60.9 Active 11/18/2018 [facility] Unspecified lump in the right breast, unspecified quadrant 12/18/2017 03/22/2018 [facility] [place] RT SHOULDER PAIN [facility] 11[facility]30/2017 [facility] Z12.31 - ENCNTR SCREEN MAMMOGRAM FOR MA Active 11/27/2017 [facility] Morbid obesity Active Problem 01/11/2019 [facility], [facility] [place] Bloating Active Problem 01/11/2019 [facility] Fluid retention Active Problem 01/11/2019 [facility] Degenerative arthritis of cervical spine Active Problem 01/11/2019 [facility] Environmental allergies Active Problem 01/11/2019 [facility] Left upper quadrant pain Active Problem 01/11/2019 [facility] Obesity Active Problem 01/11/2019 [facility] Abnormal genetic test Active Problem 01/11/2019 [facility] Rotator cuff tear, left Active Problem 01/11/2019 [facility] Tachycardia Active Problem 01/11/2019 [facility] Thyroid nodule Active Problem 01/11/2019 [facility] Medications Medication Details Route Status Patient Instructions Ordering Provider Order Date Source 24 HR Phentermine 7.5 MG / topiramate 46 MG Extended Release Capsule [Qsymia 7.5/46] 1 cap, PO, QAM, # 30 cap, 1 Refill(s) No Longer Active 06/24/2018 [facility] 24 HR Phentermine 11.3 MG / topiramate 69 MG Extended Release Capsule [Qsymia 11.25/69] 1 cap, PO, QAM, # 30 cap, 2 Refill(s) Active 02/26/2018 [facility] methocarbamol 750 mg oral tablet See Instructions, # 30 tab, TAKE 1 TABLET BY MOUTH EVERY DAY NEEDED FOR MUSCLE PAIN, Pharmacy: [facility]/pharmacy #[id number] Active 12/23/2017 [facility] Ondansetron 8 MG Disintegrating Tablet [Zofran] 8 mg=1 tab, PO, TID, PRN Nausea and Vomiting, Dissolve tab under tongue, # 10 tab, 0 Refill(s), [id number] Active 12/10/2017 [facility] POLYETHYLENE GLYCOL 3350 142 MG/ML Oral Solution [Miralax] 17 gm, PO, Bedtime, Dissolve in 8 oz. of water, X 7 day, # 1 ea, 1 Refill(s), [id number] No Longer Active 12/10/2017 [facility] Nitrofurantoin 100 MG Oral Capsule [Macrobid] 100 mg=1 cap, PO, BID, 0 Refill(s) Active 12/10/2017 [facility] Diclofenac Sodium 0.01 MG/MG Topical Gel See Instructions, PRN Apply to affected area, 1 appl TOP BID as needed over shoulder area for pain, # 100 gm, 1 Refill(s), [id number] Active 11/27/2017 [facility] Methocarbamol 750 MG Oral Tablet [Robaxin] See Instructions, 1 tablet daily as needed for muscle pain, # 30 tab, 0 Refill(s), [id number] Active 11/27/2017 [facility] 24 HR Phentermine 7.5 MG / topiramate 46 MG Extended Release Capsule [Qsymia 7.5/46] 1 cap, PO, QAM, # 30 cap, 2 Refill(s) Active 11/27/2017 [facility] 24 HR Phentermine 3.75 MG / topiramate 23 MG Extended Release Capsule [Qsymia 3.75/23] 1 cap, PO, QAM, # 14 cap, 0 Refill(s) Active 11/27/2017 [facility] Allergies, Adverse Reactions, Alerts Substance Category Reaction Severity Reaction type Status Date Reported Comments Source penicillins Assertion Drug allergy Active [facility] Immunizations Immunization Date Given Site Status Last Updated Comments Source diphtheria/pertussis, acel/tetanus adult<sup>1</sup> 11/27/2017 Left Deltoid completed Dominic Result Comment: patient monitored for 15 minutes had no side effect [facility], [facility] Outpatient Imaging [facility] Results Order Name Results Value Reference Range Date Interpretation Comments Source Breast w/wo contrast bilat MRI Breast w/wo contrast bilat MRI BREAST MRI OF BOTH BREASTS : 09/21/2018 CLINICAL: 48 yo high risk female presents for screening MRI. She has a monoallelic mutation of NBN gene. No family history of breast cancer. COMPARISON:Comparison is made to exams dated: 12/14/2017 ultrasound - [facility] and 12/02/2017 mammogram - [facility] - Outpatient Imaging. TECHNIQUE: Interpretation of this MRI was correlated with available mammograms and ultrasounds. 19 cc of MultiHance contrast was injected. Axial T1, T2, sagittal T1, pre and post contrast T1, and coronal images were obtained with a dedicated breast MRI. FINDINGS: The breast tissue shows marked background enhancement. The breast composition demonstrates heterogeneous fibroglandular tissue. RIGHT BREAST: There is a 2.6 cm septated benign cyst at 12:00, also seen on prior mammogram and ultrasound dated November 2017. There are scattered foci of enhancement. There is no suspicious mass or nonmass enhancement. There are no abnormalities seen in the axillary nodes region or internal mammary nodes. LEFT BREAST: There are scattered foci of enhancement. There is no suspicious mass or nonmass enhancement. There is a 7 mm benign appearing lymph node in the upper outer quadrant, stable on mammography dating back to 2013. There are no abnormalities seen in the axillary nodes region or internal mammary nodes. IMPRESSION: BENIGN No suspicious MRI findings in either breast. RECOMMENDATION: - ANNUAL BILATERAL SCREENING MAMMOGRAM AND ULTRASOUND IS DUE NOVEMBER 2018. - RECOMMEND HIGH RISK SURVEILLANCE ALTERNATING BETWEEN MAMMOGRAPHY AND MRI AT SIX MONTH INTERVALS. This exam was interpreted at [id number] for [facility] Imaging. Liset Romeo M.D. dh/:09/30/2018 12:18:47 News Cameraman(s): Laurence Lange [facility] letter sent: BI-RADS 1/2 MRI BI-RADS: 2 Benign 09/21/2018 - - Read by: Liset Romeo MD Dictated Date/time: 09/30/18 12:18 Electronically Signed by: Liset Romeo MD 09/30/18 12:18 FINAL REPORT [facility] Thyroid US Thyroid US EXAM: US THYROID DATE: 08/18/2018 11:22 AM CDT INDICATION: thyroid nodule - thyroid nodule ADDITIONAL INFORMATION: None. COMPARISON: None. TECHNIQUE: Multiplanar grayscale and color Doppler ultrasound of the neck were obtained in the area of the thyroid. FINDINGS: Thyroid parenchyma: Normal. Size: Right thyroid: 3.7 cm in span by 1.5 cm in AP dimension by 1.7 cm transversely. Left thyroid: 4.4 cm in span by 1.6 cm in AP dimension by 1.7 cm transversely. Isthmus thickness: 3.2 mm Nodule : Location: Right lower pole Size: 1.8 x 1.4 x 1.2 cm Composition: Cystic or almost completely cystic (0 points). Echogenicity: Anechoic (0 points). Shape: Wider than tall (0 points). Margins: Lobulated (2 points). Echogenic foci: Absent (0 points). Other: None. ACR TI-RADS Score: TR2 - Not suspicious (total 1-2 points). -- ACR recommendation: No f/u or FNA. Recommendations: None. Nodule Location: Left lower pole Size: 8.1 x 8.4 x 5 mm Composition: Solid or almost completely solid (2 points). Echogenicity: Isoechoic (1 point). Shape: Wider than tall (0 points). Margins: Smooth (0 points). Echogenic foci: Absent (0 points). Other: None. ACR TI-RADS Score: TR3 - Mildly suspicious (total 3 points). -- ACR recommendation:=2.5 cm FNA;=1.5 cm f/u in 1, 3, and 5 years; <1.5 cm no f/u or FNA. Recommendations: No follow-up or FNA needed. Nodule : Location: Left mid pole Size: 3 x 1.7 x 2.7 mm Composition: Solid or almost completely solid (2 points). Echogenicity: Hypoechoic (2 points). Shape: Wider than tall (0 points). Margins: Smooth (0 points). Echogenic foci: Absent (0 points). Other: None. ACR TI-RADS Score: TR4 - Moderately suspicious (total 4-6 points). -- ACR recommendation:=1.5 cm FNA;=1 cm f/u in 1, 2, 3, and 5 years; <1 cm no f/u or FNA. Recommendations: This is less than 1 cm and no follow-up or FNA needle. Cervical lymph nodes: Normal. IMPRESSION: 1. There are 3 nodules which are not suspicious either because of their overall characteristics or their size. No FNA or follow-up is recommended. 08/18/2018 - - Read by: Jonathan Daugherty MD Dictated Date/time: 08/18/18 13:11 Electronically Signed by: Jonathan Daugherty MD 08/18/18 13:19 FINAL REPORT [facility] Breast Limited Uni US Breast Limited Uni US LIMITED ULTRASOUND OF RIGHT BREAST: 12/14/2017 CLINICAL: N63.10/Breast Mass, Right Means, Marisela 74. COMPARISON:Comparison is made to exam dated: 12/02/2017 mammogram - [facility] - Outpatient Imaging. TECHNIQUE: Color flow and real-time ultrasound of the right breast 12 o'clock region were performed. Coronado scale images of the real-time examination were reviewed. FINDINGS: There is a benign cyst measuring 3.2cm x 3.2cm x 1cm in right breast 12:00, 4cm from the nipple, corresponding to mammographic finding. IMPRESSION: BENIGN RECOMMENDATION:There is no sonographic evidence of malignancy. A 1 year screening mammogram is recommended.(12/15/2018) This exam was interpreted at [id number] at [facility]. Professional services are provided by the [facility] of Diagnostic Imaging. Pebbles Velasquez M.D. as/penrad:12/14/2017 13:16:53 News Cameraman(s): Ira Holt [facility] letter sent: BI-RADS 1/2 Ultrasound BI-RADS: 2 Benign 12/14/2017 - - Read by: Pebbles Velasquez MD Dictated Date/time: 12/14/17 13:16 Electronically Signed by: Pebbles Velasquez MD 12/14/17 13:[address] [facility] Outpatient Imaging [facility] Breast Mammo Scrn CAMERON incl CAD MA Breast Mammo Scrn CAMERON incl CAD MA BILATERAL DIGITAL SCREENING MAMMOGRAM WITH CAD: 12/02/2017 CLINICAL: /Z12.31 Encounter For Screening Mammogram For Malignant Neoplasm Of Breast. Current study was evaluated with a Computer Aided Detection (CAD) system. COMPARISON:No prior exams were available for comparison. TECHNIQUE: Mammographic views were obtained using digital acquisition. Current study was also evaluated with a Computer Aided Detection (CAD) system. FINDINGS: There are scattered fibroglandular densities in both breasts. There is 3.2 cm oval equal density mass in the right breast at 12 o'clock anterior depth 3 cm from the nipple. No other significant masses, calcifications, or other findings are seen in either breast. IMPRESSION: INCOMPLETE: NEEDS ADDITIONAL IMAGING EVALUATION RECOMMENDATION:The 3.2 cm oval equal density mass in the right breast is indeterminate. Ultrasound with possible diagnostic mammography are recommended. SUMMARY: The staff from [facility] with [facility] will contact the patient to schedule the additional studies. A separate report will be issued following interpretation of the additional studies. Professional services are provided by the [facility] of Diagnostic Imaging. Yara ortega/penrad:12/10/2017 11:21:58 News Cameraman(s): Nhi Holloway [facility] - Outpatient Imaging letter sent: BI-RADS 0 Mammogram BI-RADS: 0 Indeterminate 12/02/2017 - - Read by: Yara Clifford MD Dictated Date/time: 12/10/17 11:21 Electronically Signed by: Yara Clifford MD 12/10/17 11:21 FINAL REPORT LINDA Garg Vital Signs Vital Sign Value Date Comments Source BMI Calculated 35.47 06/24/2018 [facility] Weight 98.182 06/24/2018 [facility] Height 166.37 cm 06/24/2018 [facility] Temperature Oral (F) 98.4 F 06/24/2018 [facility] Heart Rate 101 06/24/2018 [facility] Systolic (mm Hg) 136 06/24/2018 [facility] Diastolic (mm Hg) 77 06/24/2018 [facility] BMI Calculated 34.77 02/26/2018 [facility] Weight 97.727 02/26/2018 [facility] Height 167.64 cm 02/26/2018 [facility] Heart Rate 80 02/26/2018 [facility] Temperature Oral (F) 98.4 F 02/26/2018 [facility] Systolic (mm Hg) 122 02/26/2018 [facility] Diastolic (mm Hg) 82 02/26/2018 [facility] BMI Calculated 34.94 12/10/2017 [facility] Height 167.64 cm 12/10/2017 [facility] Weight 98.182 12/10/2017 [facility] Systolic (mm Hg) 124 12/10/2017 [facility] Diastolic (mm Hg) 81 12/10/2017 [facility] Heart Rate 73 12/10/2017 [facility] Temperature Oral (F) 98.4 F 12/10/2017 [facility] BMI Calculated 37.69 11/27/2017 [facility] Weight 105.909 11/27/2017 [facility] Height 167.64 cm 11/27/2017 [facility] Heart Rate 67 11/27/2017 [facility] Temperature Oral (F) 98.8 F 11/27/2017 [facility] Systolic (mm Hg) 128 11/27/2017 [facility] Diastolic (mm Hg) 81 11/27/2017 [facility] Encounters Location Location Details Encounter Type Encounter Number Reason For Visit Attending Provider ADM Date DC Date Status Source Outpatient [id number] DESTINEE FELIZ 11/27/2017 Active [facility] Internal Medicine [facility] Outpatient [id number] Destinee Feliz 11/27/2017 11/28/[address] [facility] Outpatient Imaging [facility] Outpatient [id number] Marian Humphries 12/02/2017 12/03/2017 [facility] Outpatient [id number] MARLENE SHARP 12/10/2017 [facility] Internal Medicine [facility] Outpatient [id number] Marlene Sharp 12/10/2017 12/11/[address] [facility] Outpatient Imaging [facility] [id number] Marian Humphries 12/14/2017 12/15/2017 [facility] Outpatient Imaging [facility] Internal Medicine [facility] Phone Message [id number] 12/23/2017 12/25/2017 [facility] Outpatient [id number] DESTINEE FELIZ 02/26/2018 Active [facility] Internal Medicine [facility] Outpatient [id number] Destinee Feliz 02/26/2018 02/27/2018 [facility] Outpatient [id number] DESTINEE FELIZ 03/26/2018 Active [facility] Outpatient [id number] DESTINEE FELIZ 06/04/2018 Active [facility] Internal Medicine [facility] Ambulatory Pre-Reg [id number] Destinee Feliz 06/04/2018 06/04/2018 [facility] Outpatient [id number] DESTINEE FELIZ 06/17/2018 Active [facility] Internal Medicine [facility] Ambulatory Pre-Reg [id number] Destinee Feliz 06/17/2018 06/17/2018 [facility] Outpatient [id number] LESLIE ESPER 06/24/2018 Active [facility] [id number] DESTINEE FELIZ 06/24/2018 Active [facility] Internal Medicine [facility] Outpatient [id number] Destinee Feliz 06/24/2018 06/25/2018 [facility] Group [facility] Internal Medicine [facility] Ambulatory Pre-Reg [id number] Destinee Feliz 06/24/2018 06/24/2018 [facility] Outpatient [id number] LESLIE ESPER 08/05/2018 Active [facility] [id number] LESLIE ESPER 08/18/2018 Active [facility] [id number] LESLIE ESPER 10/18/2018 Active [facility]patient [id number] LESLIE ESPER 10/19/2018 Active [facility] [id number] LESLIE ESPER 11/16/2018 Active [facility]patient [id number] LESLIE ESPER 11/18/2018 Active [facility] Outpatient [id number] BERNARD JAKE 02/07/2019 Active [facility] Procedures Procedure Code Date Perfomer Comments Source Procedure<sup>1</sup> [id number] 10/30/2018 steroid shots [facility] MRI guided biopsy of bilateral breasts [id number] 09/30/2018 [facility] Partial hysterectomy [id number] 08/30/2007 [facility] Partial hysterectomy [id number] 08/30/2007 [facility] Partial hysterectomy [id number] 08/30/2007 [facility] [place]
--- OUTSIDE RECORDS SUMMARY | 2019-01-24 09:03 | XMS REPORT | Summary of Care ---
Author Author [facility] Internal [place] [facility] [place] [facility] Internal [place] [facility] Address Unknown Phone Unavailable Encounter DMITRI Flores(RADHA) [id number] Date(s): 06/17/18 - 06/17/18 [facility] Internal [place] [facility] [address] [place] [address]- [phone] Attending Physician: Faith Feliz MD Vital Signs [...]
--- OUTSIDE RECORDS SUMMARY | 2019-01-24 09:03 | XMS REPORT | Summary of Care ---
Author Author [facility] Outpatient Imaging [facility] Outpatient Imaging [facility] Address Unknown Phone Unavailable Encounter HQ Snadra(FIN) [id number] Date(s): 12/02/17 - 12/02/17 [facility] Outpatient Imaging [facility] [address] [place], [place] [address]- [phone] Discharge Disposition: Home or Self Care Attending [...]
--- OUTSIDE RECORDS SUMMARY | 2019-01-24 09:03 | XMS REPORT | Summary of Care ---
Author Author [facility] Internal Medicine [facility] Organization [facility] Internal Medicine [facility] Address Unknown Phone Unavailable Encounter DMITRI Flores(RADHA) [id number] Date(s): 06/24/18 - 06/24/18 [facility] Internal Medicine [facility] [address] [facility] [address] [place] [address]- Discharge Disposition: Home or Self Care Attending Physician: Faith Feliz MD Vital Signs Most recent to 1 oldest [Reference Range]: Height 166.37 cm (06/24/18 2:05 PM) Temperature Oral 98.4 DegF [96.4-99.1 DegF] (06/24/18 2:05 PM) Blood Pressure 136/77 mmHg [90-140/60-90 mmHg] (06/24/18 2:05 PM) Peripheral Pulse 101 bpm Rate [60-100 bpm] *HI* (06/24/18 2:05 PM) Weight 98.182 kg (06/24/18 2:05 PM) Body Mass Index 35.47 m2 (06/24/18 2:05 PM) Problem List Condition Effective Dates Status Health Status Informant Bloating(Confirmed) Active Fluid Active retention(Confirmed) Degenerative Active arthritis of cervical spine(Confirmed) Environmental Active allergies(Confirmed) Left upper quadrant Active pain(Confirmed) Morbid Active obesity(Confirmed) Obesity(Confirmed) Active Abnormal genetic Active test(Confirmed) Rotator cuff tear, Active left(Confirmed) Tachycardia(Confirme Active d) Thyroid Active nodule(Confirmed) Allergies, Adverse Reactions, Alerts Substance Reaction Severity Status penicillins Active Medications Qsymia 7.5 mg-46 mg oral capsule, extended release 1 cap, PO, QAM, # 30 cap, 1 Refill(s) Start Date: 06/24/18 Stop Date: 08/18/18 Status: Completed Results No data available for this section [...]
== END | disposition home or self-care (01) ==
LOC: ENDO 10:35
PROVIDERS: ATTEND Internal Medicine Gastroenterology
DX: Z12.11 Encounter for screening for malignant neoplasm of colon (principal); Z86.010 Personal history of colon polyps; Z80.0 Family history of malignant neoplasm of digestive organs; R10.10 Upper abdominal pain, unspecified; R12 Heartburn; R14.0 Abdominal distension (gaseous); K59.09 Other constipation; R03.0 Elevated blood-pressure reading, without diagnosis of hypertension; Z68.34 Body mass index [BMI] 34.0-34.9, adult; Z91.041 Radiographic dye allergy status; Z91.010 Allergy to peanuts; Z88.0 Allergy status to penicillin; Z91.018 Allergy to other foods; K20.9 Esophagitis, unspecified; K29.70 Gastritis, unspecified, without bleeding; K31.7 Polyp of stomach and duodenum; K63.5 Polyp of colon; K62.1 Rectal polyp; K64.8 Other hemorrhoids; D12.2 Benign neoplasm of ascending colon
CPT/HCPCS: 43239; 45384; J1980; J2250; J2704 ×2; 45378

== ENCOUNTER → 2020-10-02 | Day surgery (SDC) | payer BC, OTHER ==
[~2020-10-02] MED LIST changes: -FENTANYL CITRATE/PF 100MCG/2 ML INJ ONE; -HYOSCYAMINE SULFATE 0.5 MG/ML INJ ONE; +KETAMINE HCL INJ 50 MG/ML 10 ML VIAL ONE; +LIDOCAINE HCL 2% LOCAL INJ 5 ML SDV VIAL INJ ONE; +OMEPRAZOLE40 MG PO; -PROPOFOL IV EMULSION 10 MG/ML 50 ML VIAL ONE
[2020-10-02 12:16] VITALS: BP 123/83
--- NOTE | 2020-10-02 12:46 | Operative Report ---
DATE OF PROCEDURE: 10/02/2020 SURGEON: Simab Chanel MD PROCEDURE: EGD with polypectomy and biopsies. INDICATIONS FOR EGD: Upper abdominal pain, nausea. MEDICATIONS: The patient was done under MAC, please see anesthesiologist's note. PROCEDURE IN DETAIL: With the patient in the left lateral decubitus position, the flexible fiberoptic Olympus gastroscope was introduced into the esophagus under direct visualization without any difficulty. There was some patchy erythema noted in distal esophagus. The scope was then advanced with ease into the stomach traversing a small sliding hiatal hernia. Mucosa overlying the antrum and the body revealed some patchy intense erythema and moderate edema, and biopsies were obtained and sent to stain for H. pylori. Minute hyperplastic-appearing polyps were noted in the distal body and some were partially excised with the cold biopsy forceps. Pylorus was of normal contour and shape, was intubated with ease and the scope was advanced all the way to the second portion of the duodenum. Biopsies were obtained from the proximal second portion and the duodenal bulb to rule out sprue. The scope was then withdrawn back into the stomach and retroflexed, mucosa overlying the fundus and the cardia appeared to be within normal limits. The scope was then straightened out, it was subsequently withdrawn, and the patient tolerated the procedure well. IMPRESSION: 1. Distal esophagitis, mild. 2. Small sliding hiatal hernia. 3. Gastritis, biopsied, biopsies sent to stain for Helicobacter pylori. 4. Gastric polyps, body, hyperplastic-appearing, some partially excised with the cold biopsy forceps. 5. Rule out sprue. PLAN: Follow up histology. Initiate Protonix 40 mg one p.o. q.a.m. before meals. Simba Chanel MD [facility]/MOD[facility] /[id number] cc: Dr. Inocencio Leone
== END | disposition home or self-care (01) ==
LOC: OR 10:20
PROVIDERS: ATTEND Internal Medicine Gastroenterology
DX: K29.70 Gastritis, unspecified, without bleeding (principal); Z86.010 Personal history of colon polyps; K31.7 Polyp of stomach and duodenum; K20.90 Esophagitis, unspecified without bleeding; K44.9 Diaphragmatic hernia without obstruction or gangrene; E78.00 Pure hypercholesterolemia, unspecified; N28.89 Other specified disorders of kidney and ureter; R03.0 Elevated blood-pressure reading, without diagnosis of hypertension; Z88.0 Allergy status to penicillin; Z91.041 Radiographic dye allergy status; Z01.812 Encounter for preprocedural laboratory examination; Z11.59 Encounter for screening for other viral diseases; Z68.35 Body mass index [BMI] 35.0-35.9, adult; Z80.0 Family history of malignant neoplasm of digestive organs
CPT/HCPCS: 43239; J2001; J2704; U0002; J2250

== ENCOUNTER → 2021-01-08 | Day surgery (SDC) | payer BC ==
[~2021-01-08] MED LIST changes: +CHROMIUM PIC1000 MCG PO; +GLUCAGON FOR INJ 1 MG VIAL ONE; +HYOSCYAMINE SULFATE 0.5 MG/ML INJ ONE; -KETAMINE HCL INJ 50 MG/ML 10 ML VIAL ONE; -LIDOCAINE HCL 2% LOCAL INJ 5 ML SDV VIAL INJ ONE; -MIDAZOLAM HCL 2 MG/2 ML VIAL ONE; +PROTONIX20 MG PO; +VITAMIN B COMP1 EACH PO; +VITAMIN D250 MCG PO
[2021-01-08 12:29] VITALS: BP 126/77
== END | disposition home or self-care (01) ==
LOC: OR 09:51
PROVIDERS: ATTEND Internal Medicine Gastroenterology
DX: R10.9 Unspecified abdominal pain (principal); K63.5 Polyp of colon; K64.8 Other hemorrhoids; K59.00 Constipation, unspecified; K21.9 Gastro-esophageal reflux disease without esophagitis; N28.89 Other specified disorders of kidney and ureter; R03.0 Elevated blood-pressure reading, without diagnosis of hypertension; Z88.0 Allergy status to penicillin; Z88.8 Allergy status to other drugs, medicaments and biological substances; Z91.041 Radiographic dye allergy status; Z01.812 Encounter for preprocedural laboratory examination; Z20.822 Contact with and (suspected) exposure to COVID-19; Z68.37 Body mass index [BMI] 37.0-37.9, adult; Z80.0 Family history of malignant neoplasm of digestive organs
CPT/HCPCS: 45384; U0002; J1610; J1980

== ENCOUNTER 2024-12-04 20:24 | Emergency (ER) | payer BC, OTHER ==
[~2024-12-04] VITALS: Ht 165.1 cm; Wt 106.1 kg
[~2024-12-04 20:24] MED LIST changes: +BIOTIN1000 MCG; -GLUCAGON FOR INJ 1 MG VIAL ONE; -HYOSCYAMINE SULFATE 0.5 MG/ML INJ ONE; -PROPOFOL IV EMULSION 10 MG/ML 20 ML VIAL ONE; +ZYRTEC10 MG
[2024-12-04 20:34] VITALS: TEMP 99.1
[2024-12-04] MEDS: KETOROLAC TROMETHAMINE 30 MG/ML VIAL IV STA (21:18)
[2024-12-04 21:26] LABS: BASOPHILS # (AUTO) 0.1 (0.0-0.1); BASOPHILS % 0.5 % (0.0-1.0); EOSINOPHILS # (AUTO) 0.3 (0.0-0.4); EOSINOPHILS % 2.2 % (0.0-6.0); HEMATOCRIT 44.6 % (34.2-44.1); HEMOGLOBIN 14.4 g/dL (12.0-16.0); LYMPHOCYTES # (AUTO) 4.4 (1.0-3.2); LYMPHOCYTES % 36.4 % (18.0-39.1); MEAN CORPUSCULAR HEMOGLOBIN 29.6 pg (28-32); MEAN CORPUSCULAR HGB CONC 32.3 g/dL (31-35); MEAN CORPUSCULAR VOLUME 91.6 fL (81-99); MONOCYTES % 7.8 % (4.4-11.3); NEUTROPHILS # (AUTO) 6.4 (2.1-6.9); NEUTROPHILS % 52.8 % (38.7-80.0); PLATELET COUNT 285 x10e3/uL (140-360); RED BLOOD COUNT 4.87 x10e6/uL (3.6-5.1); RED CELL DISTRIBUTION WIDTH 13.3 % (11.7-14.4); WHITE BLOOD COUNT 12.15 x10e3/uL (4.8-10.8)
[2024-12-04 21:43] LABS: ALBUMIN 4.1 g/dL (3.5-5.0); ALBUMIN/GLOBULIN RATIO 1.1 (0.8-2.0); ANION GAP 16.5 mmol/L (8-16); BILIRUBIN,TOTAL 0.5 mg/dL (0.2-1.2); CALCIUM 9.7 mg/dL (8.4-10.2); CREATININE, SERUM 0.93 mg/dL (0.57-1.11); POTASSIUM 3.5 mmol/L (3.5-5.1); TOTAL PROTEIN 7.8 g/dL (6.5-8.1)
[2024-12-04 21:52] LABS: CLARITY,URINE CLEAR (CLEAR); COLOR,URINE YELLOW (YELLOW); GLUCOSE, URINE NEGATIVE (NEGATIVE); KETONES,URINE NEGATIVE (NEGATIVE); LEUKOCYTE ESTERASE ,URINE NEGATIVE (NEGATIVE); NITRITE,URINE NEGATIVE (NEGATIVE); PH,URINE 7 (5 - 7); PROTEIN,URINE DIPSTICK NEGATIVE (NEGATIVE)
[2024-12-04 21:53] LABS: BILIRUBIN,URINE NEGATIVE (NEGATIVE); URINE UROBILINOGEN 1 mg/dL (0.2 - 1)
[2024-12-04 21:58] LABS: BACTERIA,URINE MANY /HPF; EPITHELIAL CELLS,URINE MANY /LPF; RBC,URINE 0-5 /HPF (0-5); WBC,URINE (MAN) 0-5 /HPF (0-5)
[2024-12-04 22:12] LABS: TROPONIN I 0.006 ng/mL (0-0.300)
[2024-12-04 23:36] VITALS: PULSE 65; RESP 18; O2SAT 100
== END 2024-12-04 23:45 | disposition home or self-care (01) ==
LOC: ER 20:41
DX: R10.32 Left lower quadrant pain (principal); N83.202 Unspecified ovarian cyst, left side
CPT/HCPCS: 36415; 74176; 80053; 81001; 83690; 84484; 85025; 93005; 99284; J1885